=== PATIENT | female | born 1960 | race Caucasian/White ===

== ENCOUNTER → 2018-01-22 | Outpatient (CLI) | payer BC, OTHER ==
[~2018-01-22] VITALS: Ht 162.6 cm; Wt 72.6 kg
[~2018-01-22] MED LIST: AMITRIPTYLINE H25 M2 PO; AMPHETAMINE SAL10 MG PO; BIOTIN5000 MCG PO; DEXTROAMP-AMPHE30 MG PO; FOLIC ACID1 MG PO; HUMIRA40 MG/0.1 SUBQ; IBUPROFEN 800800 M1 PO; LIPITOR 20 MG T20 M1 PO; METHOTREXATE 22.5 MG PO; OMEGA 3 FISH O1 EACH PO; PREDNISONE 10 M10 MG PO; PROTONIX40 M1 PO; SPIRONOLACTONE25 M1 PO; ZANAFLEX2 MG PO; ZYRTEC10 M2 PO
--- NOTE | ~2018-01-22 | HPC ---
[facility] [address] [place] [address] PAIN MANAGEMENT CONSULTATION Name: ZENOBIA RASHEED Room #: REG [facility].#: [id number] Admission: 01/22/18 Attend Phys: Armando Rueda DO Discharge: Date of : 58 Report #: [id number] THIS REPORT FOR: //name// CC: Shruthi Wood Helene Padgett DATE OF SERVICE: 01/22/2018 REFERRING PHYSICIAN: Shruthi Lynn MD CHIEF COMPLAINT: Low back pain, bilateral lower extremity pain with paresthesias. HISTORY OF PRESENT ILLNESS: As you know, the patient is a 57-year-old female who reports acute onset of low back pain, bilateral lower extremity pain that presented mid portion of December 2017. The patient denies any injury or trauma that may have led to symptom development. The patient states she is done not only formalized physical therapy, but is continuing to do stretching exercises and strengthening exercises at home. She has trialled conservative medical therapy through her primary care physician. Unfortunately, her symptoms did not improve. She sought further evaluation through her PCP who sent the patient for MRI, findings were such the patient was then referred to our clinic to discuss options for treatment for lumbar radiculopathy secondary to spinal stenosis. The patient states the pain is continuous, constant and radiating, describes the pain as burning, shooting, cramping, aching, throbbing, sharp, stabbing, tender, numbness, and tingling. She places current pain score at 8/10, daily average is 7-8/10, worst the pain has been is 10/10. The patient states standing up straight, doing an activity tends to exacerbate symptoms; heat and muscle relaxers tend to improve pain. She has been referred to our service to discuss options for treatment for suspected lumbar radiculopathy secondary to spinal stenosis. PAST MEDICAL HISTORY: 1. Degenerative joint disease. 2. Osteoarthritis. 3. Gastroesophageal reflux disease. 4. Dyslipidemia. 5. Attention deficit disorder. 6. Undifferentiated rheumatic disease. PAST SURGICAL HISTORY: Cholecystectomy. SOCIAL HISTORY: The patient denies tobacco, alcohol, IV or illicit drug use. [facility] [address] [place] [address] PAIN MANAGEMENT CONSULTATION Name: ZENOBIA RASHEED Room #: REG [facility]#: [id number] Admission: 01/22/18 Attend Phys: Armando Rueda DO Discharge: Date of : 58 Report #: [id number] She is a homemaker. She is not receiving disability income. She is not in litigation in regards to pain. She is unaccompanied today. REVIEW OF SYSTEMS: Positive for night sweats, fatigue, weakness, frequent and recurrent headaches, wearing corrective eyewear, hearing loss with tinnitus, mouth sores, changes in bowel movements, frequent diarrhea interspersed with constipation, frequent urination, nocturia, changes in force or stream of urination, incontinence, dribbling to urine, varicose veins, lightheadedness, dizziness, numbness and tingling sensations, head injury, memory loss with confusion, insomnia, slow to heal after cuts, bleeding and bruising tendencies, low back pain, bilateral lower extremity pain, neck pain, bilateral upper extremity pain. All other review of systems negative per 12-point review of systems other than those listed in history of present illness. Pain impact score 70/70 indicating complete interference of daily activities secondary to pain. ALLERGIES: SULFA, OMEPRAZOLE, and ESOMEPRAZOLE. CURRENT MEDICATIONS: Prednisone 10 mg once a day, biotin 5000 mcg per day, omega-3 fish oil 1 tab per day, Zyrtec 10 mg per day, amphetamine salts 10 mg once a day, amitriptyline 25 mg per day, dextroamphetamine 30 mg once a day, atorvastatin 20 mg per day, spironolactone 25 mg twice a day, folic acid 1 mg twice a day, Humira injected 40 mg subcutaneous, ibuprofen 800 mg every 8 hours, tizanidine 2 mg p.r.n., methotrexate 2.5 mg weekly, pantoprazole 40 mg per day. IMAGING: MRI lumbar spine obtained 01/15/2018, shows L1-L2 unremarkable. L2-L3 unremarkable. L3-L4 shows mild facet and ligamentum flavum hypertrophy, minimal diffuse disk bulging, thecal sac measures 10 mm, foramen are patent. L4-L5, there is a 6-mm anterolisthesis of L4 on L5, facet and ligamentum flavum hypertrophy, diffuse annular disk bulge, thecal sac measures 7 mm AP. There is mild bilateral foraminal stenosis. L5-S1, facet and ligamentum flavum hypertrophy. No evidence of focal disk protrusion. No signs of central canal or neural foraminal stenosis. There are noted incidental cyst that have no effect. PHYSICAL EXAMINATION: VITAL SIGNS: Blood pressure 161/101, pulse 113, respiratory rate 16 and unlabored, the patient is 100% on room air, height 5 feet 4 inches tall, weight 160 pounds, and BMI calculated 27.5. GENERAL: Well-developed, well-nourished, well-hydrated 57-year-old female, appearing her stated age, she is placing current pain score 8/10. HEENT: Normocephalic, atraumatic. Pupils are equal, round, and reactive to light. Extraocular muscles are intact. Sclerae are nonicteric without injection. NEUROLOGIC: Cranial nerves 2-12 are grossly intact. Speech is fluent. She is deemed a good historian. [facility] [address] [place] [address] PAIN MANAGEMENT CONSULTATION Name: ZENOBIA RASHEED Room #: [facility]#: [id number] Admission: 01/22/18 Attend Phys: Armando Rueda DO Discharge: Date of : 58 Report #: [id number] LUNGS: Clear, no wheeze, rhonchi or rales. CARDIOVASCULAR: Tachycardic. No appreciable gallop or rub. ABDOMEN: Soft, nontender, and nondistended. EXTREMITIES: Show no clubbing, no cyanosis, and no edema. MUSCULOSKELETAL: The patient has some palpatory tenderness over the paraspinal musculature of lower lumbar spine, no spinous process tenderness. Lower extremity strength appears symmetrical 5/5, some giveaway strength noted with hip flexion bilaterally due to increasing axial back pain. Seated straight leg raising negative. Supine straight leg raising mildly positive. Yoandy's test negative. Modified Gaenslen's positive for axial low back pain. Ankle clonus negative. Babinski is negative. She is intact to light touch from L1 through S2 dermatomes. Deep tendon reflexes are symmetrical at patella and Achilles. Lumbar provocation testing is met with increasing pain, no radiation of symptoms beyond the upper buttock area. The patient's stance is highly forward flexed approximately 30-degree angle. ASSESSMENT: 1. Lumbar radiculopathy. 2. Spondylolisthesis of L4 on L5. 3. Moderate spinal stenosis of lumbar spine. 4. Lumbosacral spondylosis with radiculopathy. 5. Foraminal stenosis of lumbar spine. 6. Chronic intractable pain. PLAN: 1. The patient has been referred to our service for evaluation for suspected lumbar radiculopathy. We have spent 15 minutes time reviewing the patient's MRI and correlating to her current symptoms. The patient has one level of pathology, this is at the L4-L5 level where she has a 6-mm spondylolisthesis in combination with facet arthropathy and ligamentum flavum hypertrophy reducing her canal from approximately 12-15 mm down to 7 mm. This would be classified as a moderate spinal stenosis. This is not a new finding. This is something that has been present for some time. Further evaluation I believe is necessary when spondylolisthesis are located. AP and lateral flexion and extension films should be performed to determine if the spondylolisthesis is moving pathologically. If there is movement noted, stabilization would be necessary. We did discuss that if no stabilization is necessary, the following treatments could be useful in providing pain relief. We discussed physical therapy, stretching exercises, core strengthening for which the patient is participating, but may need to become more active, doing twice to 3 times a week formalized initially and then moving towards home based exercise program along with core strengthening. We discussed medication management with neuropathic pain medications and a consistent nonsteroidal anti-inflammatory. We discussed lumbar epidural injections for which the patient was referred to our clinic and ultimately surgical options. After [address] [address] PAIN MANAGEMENT CONSULTATION Name: ZENOBIA RASHEED Room #: REG [facility]#: [id number] Admission: 01/22/18 Attend Phys: Armando Rueda DO Discharge: Date of : 58 Report #: [id number] reviewing risks and benefits of all proposed treatment options, the patient indicated she would like to consider the options for treatment over the next couple of days and then contact our clinic return. In the interim, we will be having the patient undergo the flexion and extension films indicated above. The patient can contact our clinic in the morning of 01/23/2018, for the findings of the flexion and extension films. 2. The patient had indicated that she has a positive evaluation for ankylosing spondylitis. There is no indication in the MRI of any ankylosing. The findings on her MRI are fairly consistent with a 57-year-old female and do not appear to be progressed as you would see in an ankylosing spondylitis case. 3. No medication changes made at today's visit, the patient will continue current medical therapy as previously prescribed. 4. We will see the patient back in followup visit once she has made her decision on whether or not she wishes to move forward with epidural injections or to discuss medication management suggestions that can be provided to her. 5. We wish to thank Dr. Lynn for the referral of the patient to our clinic, we will keep you apprised of her response to treatment as we address what appears to be lumbar radicular symptoms secondary to her moderate spinal stenosis at the L4-L5 level. Again, we wish to thank you for the opportunity to see the patient in consultation. By: [id number] Armando Rueda DO /nt
[2018-01-22 13:57] VITALS: BP 161/101
== END | disposition home or self-care (01) ==
LOC: PAIN 08:00 → RAD 08:00 → PAIN 10:41
DX: M47.27 Other spondylosis with radiculopathy, lumbosacral region (principal); M43.16 Spondylolisthesis, lumbar region; M48.061 Spinal stenosis, lumbar region without neurogenic claudication; G89.29 Other chronic pain; M19.90 Unspecified osteoarthritis, unspecified site; K21.9 Gastro-esophageal reflux disease without esophagitis; E78.5 Hyperlipidemia, unspecified; F98.8 Other specified behavioral and emotional disorders with onset usually occurring in childhood and adolescence; M06.9 Rheumatoid arthritis, unspecified; Z90.49 Acquired absence of other specified parts of digestive tract; Z88.2 Allergy status to sulfonamides; Z88.8 Allergy status to other drugs, medicaments and biological substances; Z79.899 Other long term (current) drug therapy